=== PATIENT | female | born 1990 | race Caucasian/White ===

== ENCOUNTER → 2016-06-12 | Outpatient (CLI) | payer BC ==
[~2016-06-12] MED LIST: DEPO MEDROL40 MG/ML IJ
== END ==
LOC: BHSO 09:20
DX: F33.42 Major depressive disorder, recurrent, in full remission (principal)

== ENCOUNTER 2017-06-26 23:10 | Emergency (ER) | payer SELFPAY ==
[~2017-06-26] VITALS: Ht 165.1 cm; Wt 71.8 kg
[2017-06-26] MEDS ORDERED: ALLEGRA ALLERG180 MG PO (23:23)
[2017-06-26] MEDS ORDERED: VIT B PO (23:24)
[2017-06-26] MEDS ORDERED: EPA FISH OIL1 SGL PO (23:24)
[2017-06-26] MEDS ORDERED: BIOTIN10000 MC1 PO (23:25)
[2017-06-26] MEDS ORDERED: SUDAFED 24-HOU240 MG PO (23:25)
[2017-06-26] MEDS ORDERED: L-THEANINE PO (23:29)
[2017-06-26 23:39] LABS: COLLECTION METHOD CLEAN CATCH
[2017-06-26 23:41] VITALS: TEMP 97.8
[2017-06-26 23:45] LABS: PH 6 (5-8); SQUAMOUS EPITHELIAL 0-2 /hpf; URINE APPEARANCE Hazy; URINE BACTERIA Rare /hpf; URINE BILIRUBIN Negative (NEGATIVE); URINE BLOOD Negative (NEGATIVE); URINE COLOR Straw; URINE GLUCOSE Negative (NEGATIVE); URINE KETONE Negative (NEGATIVE); URINE LEUKOCYTE ESTERASE Negative (NEGATIVE); URINE NITRATE Negative (NEGATIVE); URINE PROTEIN(semi-quant) Negative (NEGATIVE); URINE RBC None Seen /hpf; URINE UROBILINOGEN Negative (NEGATIVE)
[2017-06-27 00:09] LABS: HEMATOCRIT 39.5 % (37.0-47.0); HEMOGLOBIN 13.7 g/dl (12.5-16.0); MEAN CELL VOLUME 95 fl (80.0-100.0); MEAN CORPUSCULAR HEMOGLOBIN 33 pg (27.0-31.0); MEAN CORPUSCULAR HGB CONC 35 g/dl (33.0-37.0); MEAN PLATELET VOLUME 10.3 fl (7.4-10.4); PLATELET COUNT 296 K/mm3 (130-400); RED BLOOD COUNT 4.15 M/mm3 (4.10-5.30); REDCELL DISTRIBUTION WIDTH-CV 12.1 % (11.5-14.5)
[2017-06-27 00:20] LABS: ALANINE AMINOTRANSFERASE 41 U/L (9-52); ALBUMIN 4.4 gm/dL (3.5-5.0); ALKALINE PHOSPHATASE 108 U/L (50-136); ANION GAP 13 mmol/L (7-16); AST,SGOT 50 U/L (15-37); BILIRUBIN,TOTAL 0.6 mg/dL (0.0-1.0); BLOOD UREA NITROGEN 13 mg/dL (7-17); CALCIUM 9.6 mg/dL (8.4-10.2); CARBON DIOXIDE 27 mmol/L (22-30); CHLORIDE 98 mmol/L (98-107); CREATININE, serum 0.87 mg/dL (0.52-1.25); GLUCOSE 97 mg/dL (74-106); LIPASE 74 U/L (23-300); POTASSIUM 3.8 mmol/L (3.4-5.0); SODIUM 139 mmol/L (137-145)
[2017-06-27 00:24] LABS: C-REACTIVE PROTEIN < 0.5 mg/dL (0.0-0.9)
[2017-06-27 00:54] LABS: BAND 6 % (0-10); EOSINOPHIL 14 % (0-4); NEUTROPHILS 35 % (42.0-75.2)
[2017-06-27 00:55] LABS: LYMPHOCYTE 39 % (20.0-51.0); PLATELET ESTIMATE NORMAL (NORMAL)
[2017-06-27 00:56] LABS: STOMATOCYTE 1+
[2017-06-27] MEDS ORDERED: CARAFATE 1GM1 G PO (02:46)
[2017-06-27] MEDS ORDERED: ZOFRAN ODT4 MG PO (02:46)
[2017-06-27] MEDS ORDERED: PROTONIX 40MG T40 MG PO (02:46)
[2017-06-27 03:32] VITALS: BP 103/58; PULSE 85
== END 2017-06-27 03:35 | disposition home or self-care (01) ==
LOC: COL.ER 23:10
PROVIDERS: Emergency Medicine
DX: R10.13 Epigastric pain (principal); F17.200 Nicotine dependence, unspecified, uncomplicated
CPT/HCPCS: C9113; J1170; J2405; J7030

== ENCOUNTER 2019-04-04 12:02 | Emergency (ER) | payer BC ==
[~2019-04-04] VITALS: Ht 162.6 cm; Wt 70.5 kg
[~2019-04-04 12:02] MED LIST changes: +ALLEGRA ALLERG180 MG PO; +BIOTIN10000 MC1 PO; +CARAFATE 1GM1 G PO; +EPA FISH OIL1 SGL PO; +L-THEANINE PO; +PROTONIX 40MG T40 MG PO; +SUDAFED 24-HOU240 MG PO; +VIT B PO; +ZOFRAN ODT4 MG PO
[2019-04-04 12:16] VITALS: TEMP 101.7
[2019-04-04 13:37] LABS: BASO # 0.1 (0.0-0.2); BASO % 0.6 % (0.0-2.0); EOS # 0.1 (0.0-0.7); EOS % 1.1 % (0-4.0); GRAN # 6.3 (1.4-6.5); GRAN % 79.4 % (42.2-75.2); HEMATOCRIT 39.2 % (37.0-47.0); LYMPH # 0.4 (1.2-3.4); LYMPH % 5.3 % (20.0-51.0); MEAN CELL VOLUME 95 fl (80.0-100.0); MEAN CORPUSCULAR HEMOGLOBIN 31 pg (27.0-31.0); MEAN CORPUSCULAR HGB CONC 33 g/dl (33.0-37.0); MEAN PLATELET VOLUME 10.3 fl (7.4-10.4); MONO % 13.2 % (1.7-9.3); PLATELET COUNT 235 K/mm3 (130-400); RED BLOOD COUNT 4.14 M/mm3 (4.10-5.30); REDCELL DISTRIBUTION WIDTH-CV 12.2 % (11.5-14.5)
[2019-04-04 13:50] LABS: ALBUMIN 4.1 gm/dL (3.5-5.0); BILIRUBIN,TOTAL 0.4 mg/dL (0.0-1.0); C-REACTIVE PROTEIN 1.9 mg/dL (0.0-0.9); CALCIUM 8.7 mg/dL (8.4-10.2); CREATININE, serum 0.97 (0.52-1.25)
[2019-04-04 14:42] VITALS: BP 117/61; PULSE 86
== END 2019-04-04 14:42 | disposition home or self-care (01) ==
LOC: COL.ER 12:02
PROVIDERS: Physician Assistant
DX: J10.1 Influenza due to other identified influenza virus with other respiratory manifestations (principal); F32.9 Major depressive disorder, single episode, unspecified
CPT/HCPCS: J2405; J7030

== ENCOUNTER → 2020-09-17 | Outpatient (CLI) | payer BC ==
--- NOTE | 2020-09-17 13:30 | NUR ---
Attempt by Pat MACIEL, unsuccessful. Catheter inserted by Magda MACIEL.
== END ==
LOC: COL.RAD 09-13 08:00
DX: N39.46 Mixed incontinence (principal)

== ENCOUNTER 2021-02-19 07:43 | Emergency (ER) | payer BC ==
[~2021-02-19] VITALS: Ht 162.6 cm; Wt 75.0 kg
[2021-02-19 07:52] VITALS: BP 120/78; TEMP 98.3
[2021-02-19] MEDS ORDERED: CLEOCIN HCL300 MG PO (08:46)
[2021-02-19] MEDS ORDERED: ULTRAM 50MG TAB50 MG PO (08:46)
[2021-02-19 09:26] VITALS: PULSE 97
== END 2021-02-19 09:29 | disposition home or self-care (01) ==
LOC: COL.ER 07:43
DX: J36 Peritonsillar abscess (principal)

== ENCOUNTER 2021-02-20 07:16 | Emergency (ER) | payer BC ==
[~2021-02-20] VITALS: Ht 162.6 cm; Wt 72.7 kg
[~2021-02-20 07:16] MED LIST changes: +CLEOCIN HCL300 MG PO; +ULTRAM 50MG TAB50 MG PO
[2021-02-20 07:29] VITALS: TEMP 98.4
[2021-02-20 07:49] LABS: BASO % 0.3 % (0.0-2.0); EOS # 0.9 K/mm3 (0.0-0.7); EOS % 9.2 % (0.0-4.0); GRAN # 5.4 K/mm3 (1.4-6.5); GRAN % 55.6 % (42.2-75.2); HEMATOCRIT 40.3 % (37.0-47.0); HEMOGLOBIN 13.6 g/dl (12.5-16.0); LYMPH # 2.2 K/mm3 (1.2-3.4); LYMPH % 22.8 % (20.0-51.0); MEAN CELL VOLUME 95 fl (80.0-100.0); MEAN CORPUSCULAR HEMOGLOBIN 32 pg (27-31); MEAN CORPUSCULAR HGB CONC 34 g/dl (33.0-37.0); MEAN PLATELET VOLUME 10.1 fl (7.4-10.4); MONO # 1.2 K/mm3 (0.1-0.6); MONO % 11.8 % (1.7-9.3); PLATELET COUNT 301 K/mm3 (130-400); RED BLOOD COUNT 4.24 M/mm3 (4.10-5.30); REDCELL DISTRIBUTION WIDTH-CV 11.9 % (11.5-14.5)
[2021-02-20 08:01] LABS: ALBUMIN 3.7 gm/dL (3.5-5.0); C-REACTIVE PROTEIN 1.16 mg/dL (0.00-0.50); CALCIUM 9.2 mg/dL (8.4-10.2); CREATININE, serum 0.92 mg/dL (0.57-1.11); POTASSIUM 3.9 mmol/L (3.5-4.5); TOTAL PROTEIN 6.8 gm/dL (6.2-8.1)
[2021-02-20 08:17] LABS: BILIRUBIN,TOTAL 0.7 mg/dL (0.2-1.2)
[2021-02-20 11:30] VITALS: BP 125/71; PULSE 80
== END 2021-02-20 11:30 | disposition home or self-care (01) ==
LOC: COL.ER 07:16
PROVIDERS: Emergency Medicine
DX: J36 Peritonsillar abscess (principal); Z88.6 Allergy status to analgesic agent
CPT/HCPCS: J1100; J1885; J3010; J7030